=== PATIENT | female | born 1990 | race Caucasian/White ===

== ENCOUNTER 2019-03-02 04:49 | Emergency (ER) | payer OTHER ==
[~2019-03-02] VITALS: Ht 160 cm; Wt 88.5 kg
--- NOTE | 2019-03-02 05:00 | NUR ---
MD AT BEDSIDE FOR HX AND PHYSICAL
--- NOTE | 2019-03-02 05:10 | NUR ---
PET HANDLER AT BEDSIDE
--- NOTE | 2019-03-02 05:48 | NUR ---
CORRECTION TRACTION DONE BY ERMD PT ABLE TO TOLERATE PT NAD
--- NOTE | 2019-03-02 05:52 | NUR ---
FOOD SERVICE SUPERVISOR AT BEDSIDE
[2019-03-02] MEDS ORDERED: IBUPROFEN 800 MG TABLET PO ONE (06:00)
[2019-03-02] MEDS ORDERED: ACETAMINOPHEN ES 500 MG TABLET PO ONE (06:00)
--- NOTE | 2019-03-02 06:10 | NUR ---
PT ABLE TO TOLERATE ORHTO - GLASS APPLICATION TO RIGHT ARM ABLE TO TOLERATE RIGHT ELBOW SLING ABLE TO TOLERATE PO MEDS ORDERED FOR PAIN INSTRUCTED TO STAY 2HRS FOR REASSESSMENT OF VASCULARITY +CAPILLARY REFILL, DENIES PARESTHESIAS, DENIES RADICULOPATHY, PINK MOIST AND WARM RIGHT HAND +B/L PULSES ABLE TO DO ROM OF FINGERS. PAIN TOLERABLE AT 3-6/10
[2019-03-02] MEDS ORDERED: ACETAMINOPHEN ES 500 MG TABLET ONE (06:19)
[2019-03-02] MEDS ORDERED: IBUPROFEN 800 MG TABLET ONE (06:20)
[2019-03-02 06:38] VITALS: BP 115/93
== END 2019-03-02 07:05 | disposition home or self-care (01) ==
LOC: ER 04:52
DX: S53.104A Unspecified dislocation of right ulnohumeral joint, initial encounter (principal); F15.10 Other stimulant abuse, uncomplicated; V00.131A Fall from skateboard, initial encounter; Y93.51 Activity, roller skating (inline) and skateboarding; Y92.89 Other specified places as the place of occurrence of the external cause; Y99.8 Other external cause status
CPT/HCPCS: 73080; A4663; A9150

== ENCOUNTER 2022-05-15 16:02 | Emergency (ER) | payer OTHER ==
[~2022-05-15] VITALS: Ht 160 cm; Wt 90.7 kg
[2022-05-15] MEDS ORDERED: SULF1TAB48 PO (16:43)
[2022-05-15] MEDS ORDERED: DOXY100C5 PO (16:43)
[2022-05-15 16:56] VITALS: BP 129/74
--- NOTE | 2022-05-15 16:57 | NUR ---
Patient presented to the ER with abdominal absess. Patient examined by MD. Discharge instruction and prescriptions for new medications given and explained. Patient departed ambulatory and in stable condition.
== END 2022-05-15 16:57 | disposition home or self-care (01) ==
LOC: ER 16:17
DX: L08.9 Local infection of the skin and subcutaneous tissue, unspecified (principal); B95.8 Unspecified staphylococcus as the cause of diseases classified elsewhere
CPT/HCPCS: A4663

== ENCOUNTER 2022-06-27 00:46 | Emergency (ER) | payer OTHER ==
[~2022-06-27] VITALS: Ht 160 cm; Wt 94.8 kg
[~2022-06-27 00:46] MED LIST: DOXY100C5 PO; SULF1TAB48 PO
[2022-06-27] MEDS ORDERED: FLUORESCEIN SODIUM 1 MG STRIP ONE (01:01)
[2022-06-27] MEDS ORDERED: TETRACAINE HCL 0.5% OPHT DROP 2 ML BOTTLE ONE (01:01)
[2022-06-27] MEDS ORDERED: AMOX-430 PO (01:45)
--- NOTE | 2022-06-27 01:49 | NUR ---
Patient presented to the ER with complaints of right eye swelling. Physician seen by patient. Discharge packet and prescription given and explained. Patient departed ambulatory.
[2022-06-27 01:50] VITALS: BP 127/68
== END 2022-06-27 01:52 | disposition home or self-care (01) ==
LOC: ER 00:52
DX: H00.011 Hordeolum externum right upper eyelid (principal); L03.213 Periorbital cellulitis
CPT/HCPCS: A4663

== ENCOUNTER 2022-11-03 16:20 | Emergency (ER) | payer OTHER ==
[~2022-11-03] VITALS: Ht 160 cm; Wt 93.0 kg
[~2022-11-03 16:20] MED LIST changes: +AMOX-430 PO
--- NOTE | 2022-11-03 18:02 | NUR ---
Pt seen by MD for bedside eval. Safety measures in place. Will continue to monitor.
[2022-11-03] MEDS ORDERED: NAPR-1164 PO (18:10)
[2022-11-03] MEDS ORDERED: NAPROXEN 500 MG TABLET ONE (18:11)
[2022-11-03] MEDS ORDERED: NAPROXEN 500 MG TABLET PO ONE (18:15)
--- NOTE | 2022-11-03 18:51 | NUR ---
Patient discharged to home in stable condition. Written and verbal after care instructions given. Patient verbalizes understanding of instructions. Stressed follow up or return to ER for worsening s/s.
[2022-11-03 18:52] VITALS: BP 116/69
== END 2022-11-03 18:53 | disposition home or self-care (01) ==
LOC: ER 16:21
DX: M54.2 Cervicalgia (principal); M54.9 Dorsalgia, unspecified; Z79.2 Long term (current) use of antibiotics; Z79.899 Other long term (current) drug therapy; V49.9XXA Car occupant (driver) (passenger) injured in unspecified traffic accident, initial encounter; Y93.89 Activity, other specified; Y92.410 Unspecified street and highway as the place of occurrence of the external cause; Y99.8 Other external cause status
CPT/HCPCS: A4663